=== PATIENT | female | born 1965 | race Caucasian/White ===

== ENCOUNTER 2016-10-04 20:47 | Observation (INO) | payer OTHER ==
[2016-10-04] MEDS ORDERED: Sodium Chloride 0.9% 10 ML Syringe FLUSH PRN (21:06)
--- NOTE | 2016-10-04 21:10 | EDM.PDOC ---
ED HISTORY OF PRESENT ILLNESS - General Chief Complaint: Chest Pain Stated Complaint: Chest Pain Time Seen by Provider: 10/04/16 20:58 Source of Information: Reports: Patient, Family, RN, RN notes reviewed History Limitations: Reports: No limitations - History of Present Illness INITIAL COMMENTS - FREE TEXT/NARRATIVE: Patient presents to the emergency room at [facility] complaining of substernal chest pain. The patient states the chest pain began around 4:30 this afternoon after she finished walking up a flight of steps. The patient states that she felt severely short of breath after going up the steps. The patient states it took a couple minutes for her to catch her breath. The patient states the chest pain began shortly after that. The patient states she did take a couple of ibuprofen around 6:30 which did not relieve any of the chest pain. The patient also states she developed acid reflux after eating supper this evening. the patient states that her chest pain has not gone away since it began. The patient rates her pain 5/10. She currently does not feel short of breath. No focal neurological deficits. The patient does have a history of heavy cigarette smoking. The patient does not drink alcohol. The patient denies any leg swelling. The patient denies any nausea or vomiting. ED ROS GENERAL - Review of Systems Review Of Systems: See Below Constitutional: Denies: fever, chills, weakness Respiratory: Reports: Shortness of Breath. Denies: Cough, Sputum Cardiovascular: Reports: Chest pain, Dyspnea on exertion. Denies: Blood pressure problem, Edema, Palpitations GI/Abdominal: Denies: Abdominal pain, Nausea, Vomiting Skin: Reports: no symptoms Neurological: Denies: Dizziness, Headache, Numbness, Paresthesia, Tingling ED EXAM, GENERAL - Physical Exam Exam: See Below Exam Limited By: No limitations General Appearance: alert, no apparent distress Respiratory/Chest: no respiratory distress, lungs clear, decreased breath sounds Cardiovascular: normal peripheral pulses, regular rate, rhythm, no edema Peripheral Pulses: 2+: radial (L), radial (R) GI/Abdominal: soft, non tender, abnormal bowel sounds: (hypoactive) Extremities: normal capillary refill Neurological: alert, oriented Skin Exam: Warm, Dry, Intact, Normal color, No rash EKG INTERPRETATION EKG Date: 10/04/16 Time: 20:53 Rhythm: NSR Rate (beats/min): 97 [place]: normal P-wave: present QRS: normal ST-T: normal QT: normal TX/PQ Interval: 0.15 Comparison: NA - no prior EKG EKG Interpretation Comments: 1. Sinus Rhythm 2. Low QRS voltage in precordial leads EKG #2: Sinus Rhythm; unchanged from previous EKG Course - Orders/Labs/Meds Orders: Active Orders 24 hr Category Date Time Status Admission Status [Patient Status] [ADT] Routine ADT 10/04/16 22:20 Ordered EKG 12 Lead [EKG Documentation Completion] [RC] STAT Care 10/04/16 21:07 Active EKG 12 Lead [EKG Documentation Completion] [RC] STAT Care 10/04/16 21:35 Active Chest 2V [CR] Stat Exams 10/04/16 21:05 Taken Sodium Chloride 0.9% [Normal Saline] 1,000 ml Med 10/04/16 21:15 Active IV ASDIRECTED Sodium Chloride 0.9% [Saline Flush] Med 10/04/16 21:06 Active 10 ml FLUSH ASDIRECTED PRN Peripheral IV Insertion Adult [OM.PC] Routine Oth 10/04/16 21:06 Ordered Medication Orders Sodium Chloride (Normal Saline) 1,000 mls @ 999 mls/hr IV ASDIRECTED ROSA Sodium Chloride (Saline Flush) 10 ml FLUSH ASDIRECTED PRN PRN Reason: Keep Vein Open Labs: Laboratory Tests 10/04/16 10/04/16 10/04/16 Range/Units 21:25 21:25 21:30 WBC 9.1 (4.0-10.0) x10^3/uL RBC 4.88 (4.00-5.50) x10^6/uL Hgb 14.9 (12.0-16.0) g/dL Hct 42.1 (33.0-47.0) % MCV 86.3 (78.0-93.0) fL MCH 30.5 (26.0-32.0) pg MCHC 35.4 (32.0-36.0) g/dL RDW Coeff of Adeline 13.6 (10.0-15.0) % Plt Count 246 (130-400) x10^3/uL Neut % (Auto) 72.9 (50.0-80.0) % Lymph % (Auto) 20.9 L (25.0-50.0) % [place] % (Auto) 5.3 (2.0-11.0) % Eos % (Auto) 0.6 (0.0-4.0) % Baso % (Auto) 0.3 (0.2-1.2) % Sodium 140 (136-145) mmol/L Potassium 3.5 (3.5-5.1) mmol/L Chloride 104 (98-107) mmol/L Carbon Dioxide 28 (21-32) mmol/L BUN 11 (7-18) mg/dL Creatinine 0.8 (0.55-1.02) mg/dL Est Cr Clr Drug Dosing TNP Estimated GFR (MDRD) > 60 Glucose 129 H (74-106) mg/dL Calcium 8.8 (8.5-10.1) mg/dL Corrected Calcium 9.28 (8.5-10.1) mg/dL Phosphorus 2.8 (2.6-4.7) mg/dL Magnesium 2.0 (1.8-2.4) mg/dL Total Bilirubin 0.3 (0.2-1.0) mg/dL AST 20 (15-37) U/L ALT 39 (14-59) U/L Alkaline Phosphatase 123 H (46-116) U/L Creatine Kinase 55 (26-192) U/L Creatine Kinase Index 1.1 (0.0-4.0) % CK-MB (CK-2) 0.6 (0.0-3.6) ng/mL POC Troponin I 0.00 (0.00-0.08) ng/mL Total Protein 7.1 (6.4-8.2) g/dL Albumin 3.4 (3.4-5.0) g/dL Globulin 3.7 Albumin/Globulin Ratio 0.92 Meds: Medications Generic Name Dose Route Start Last Admin Trade Name Freq PRN Reason Stop Dose Admin Sodium Chloride 1,000 mls @ 999 mls/hr 10/04/16 21:15 Normal Saline IV ASDIRECTED ROSA Sodium Chloride 10 ml 10/04/16 21:06 Saline Flush FLUSH ASDIRECTED PRN Keep Vein Open Discontinued Medications Generic Name Dose Route Start Last Admin Trade Name Freq PRN Reason Stop Dose Admin Famotidine 20 mg 10/04/16 21:29 Pepcid IVPUSH 10/04/16 21:30 ONETIME ONE Pantoprazole Sodium 40 mg 10/04/16 21:30 Protonix Iv IVPUSH 10/04/16 21:31 ONETIME ONE - Radiology Interpretation Free Text/Narrative:: CXR: Lungs are clear; The cardiomediastinal contour is mildly prominent; the regional bones and soft tissue are unremarkable - see scanned report Departure - Departure Time of Disposition: 22:22 Disposition: Refer to Observation Condition: good Clinical Impression: Chest pain Qualifiers: Chest pain type: unspecified Qualified Code(s): R07.9 - Chest pain, unspecified ED Communication - ED Communication Date/Time Date: 10/04/16 Time Called: 22:08 - Discussed Case With (1) Discussed Case With (1): Outpatient Provider, Pt's POA/Guardian Person/s Notified (1): Maria Del Carmen Moy (Recommend OBS for serial Trops) - Conversation Summary Patient Aware of Amendments fo Care Plan: Yes - Problem List Review Problem List Initiated/Reviewed/Updated: Yes - My Orders Last 24 Hours: My Active Orders 10/04/16 21:05 Chest 2V [CR] Stat 10/04/16 21:06 Sodium Chloride 0.9% [Saline Flush] 10 ml FLUSH ASDIRECTED PRN Peripheral IV Insertion Adult [OM.PC] Routine 10/04/16 21:07 EKG 12 Lead [EKG Documentation Completion] [RC] STAT 10/04/16 21:15 Sodium Chloride 0.9% [Normal Saline] 1,000 ml IV ASDIRECTED 10/04/16 21:35 EKG 12 Lead [EKG Documentation Completion] [RC] STAT 10/04/16 22:20 Admission Status [Patient Status] [ADT] Routine - Assessment/Plan Admission H&P: Please use this note as an admission H&P Last 24 Hours: My Active Orders 10/04/16 21:05 Chest 2V [CR] Stat 10/04/16 21:06 Sodium Chloride 0.9% [Saline Flush] 10 ml FLUSH ASDIRECTED PRN Peripheral IV Insertion Adult [OM.PC] Routine 10/04/16 21:07 EKG 12 Lead [EKG Documentation Completion] [RC] STAT 10/04/16 21:15 Sodium Chloride 0.9% [Normal Saline] 1,000 ml IV ASDIRECTED 10/04/16 21:35 EKG 12 Lead [EKG Documentation Completion] [RC] STAT 10/04/16 22:20 Admission Status [Patient Status] [ADT] Routine Assessment:: Chest Pain Plan: Patient will be admitted to OBS for serial EKG's and Troponins
[2016-10-04] MEDS ORDERED: Sodium Chloride 0.9% 1,000 ML IV SCH (21:15)
[2016-10-04] MEDS ORDERED: Famotidine 20 MG/2 ML SDV IVPUSH ONE (21:29)
[2016-10-04] MEDS ORDERED: Pantoprazole 40 MG Vial IVPUSH ONE (21:30)
[2016-10-04 22:02] LABS: CHLORIDE,CL 104 mmol/L (98-107); SODIUM,NA 140 mmol/L (136-145)
[2016-10-04] MEDS ORDERED: Nitroglycerin 0.4 MG Tab.SL SL ONE (22:31)
[2016-10-04] MEDS ORDERED: Aspirin 81 MG Tab.Chew PO ONE (22:31)
[2016-10-04] MEDS ORDERED: LORazepam 2 MG/ML MDV IV PRN (22:43)
[2016-10-04] MEDS ORDERED: Nitroglycerin 0.4 MG Tab.SL SL PRN (22:43)
[2016-10-04] MEDS ORDERED: Ondansetron 4 MG Tab.DIS PO PRN (22:43)
[2016-10-04] MEDS ORDERED: Morphine 4 MG/ML Syringe IVPUSH PRN (22:43)
[2016-10-04] MEDS ORDERED: Lactated Ringers 1,000 ML IV SCH (22:45)
[2016-10-04] MEDS ORDERED: Acetaminophen 325 MG Tab PO PRN (22:47)
[2016-10-04] MEDS ORDERED: Nicotine 21 MG/24 Hr Patch TRDERM SCH (23:00)
--- NOTE | 2016-10-04 23:09 | PCM.HP ---
H&P History of Present Illness - General Date of Service: 10/04/16 Admit Problem/Dx: Admission Diagnosis/Problem Admission Diagnosis/Problem Chest pain Source of Information: Patient, Family, RN, RN notes reviewed History Limitations: Reports: No limitations - History of Present Illness Initial Comments - Free Text/Narative: 50-year-old white female with a past medical history of hypertension, morbid obesity, insomnia, anxiety and depression, presented to the emergency room at [facility] earlier this evening complaining of substernal chest pain. The patient states that the chest pain began around 5 PM shortly after walking up a flight of stairs. Patient states she had significant SOB after going up the steps and the chest pain started shortly after. Around 6:30 PM, the patient states she took a couple of Advil to help with the chest pain. Patient states the Advil did not help. Patient also developed acid reflux after the Advil. The patient presented to the emergency room around 8:30 this evening. The patient was given aspirin and nitroglycerin in the emergency room. The nitroglycerin significantly helped with the chest pain. The patient's EKGs in the emergency room were unremarkable. Troponin was also negative. The patient did develop a headache from the nitroglycerin. The headache has now subsided. Patient also was given 1 L of normal saline. The patient's chest x-ray in the emergency room was negative for any acute cardiopulmonary process. Onset of Symptoms: Reports: today Symptom Onset Date: 10/04/16 Symptom Onset Time: 17:00 Duration of Symptoms: Reports: Waxing/waning Location: Reports: chest Quality: Reports: Pressure Severity: moderate Improves with: Reports: None Worsens with: Reports: Breathing, Movement Context: Reports: exertion. Denies: sick contact, activity/exercise, lifting Associated Symptoms: Reports: chest pain, shortness of breath Middle Chest Pain Score (Numeric/FACES): 5 left chest Pain Score (Numeric/FACES): 5 - Related Data Allergies/Adverse Reactions: Allergies Allergy/AdvReac Type Severity Reaction Status Date / Time vancomycin Allergy Itching Verified 10/04/16 22:26 Home Medications: Home Meds Hydrochlorothiazide 25 mg PO DAILY 10/04/16 [History] Past Medical History Cardiovascular History: Reports: Hypertension, Other (see below) (Mild Cardiomegaly) Musculoskeletal History: Reports: Back pain, chronic Neurological History: Reports: Migraines Psychiatric History: Reports: Anxiety, Depression Endocrine/Metabolic History: Reports: Obesity/BMI 30+ - Past Surgical History HEENT Surgical History: Reports: Adenoidectomy, Tonsillectomy GI Surgical History: Reports: Appendectomy, Cholecystectomy Female Surgical History: Reports: section Other Female Surgeries/Procedures: Endometrial Ablation Other Musculoskeletal Surgeries/Procedures:: Back Surgery Social & Family History - Family History Family Medical History: Noncontributory - Tobacco Use Smoking Status *Q: Current Every Day Smoker Tobacco Use Within Last Twelve Months: Cigarettes Years of Tobacco use: 34 Smoking Cessation Information Provided To Patient: Patient Refused - Tobacco Core Measures Tobacco Use/Smoking Within Last 30 Days: Refused Screening Smoking Frequency Within Last 30 Days: Reports: Five or more cigarettes per day - Caffeine Use Caffeine Use: Reports: Soda - Alcohol Use Alcohol Use History: No Alcohol Use in Last Twelve Months: No - Recreational Drug Use Recreational Drug Use: No Drug Use in Last 12 Months: No - Sexual History Sexual History: Reports: Single partner - Living Situation & Occupation Living situation: Reports: Occupation: employed H&P Review of Systems - Review of Systems: Review Of Systems: See Below General: Denies: fever, chills, weakness Pulmonary: Reports: Shortness of Breath. Denies: Cough Cardiovascular: Reports: chest pain, dyspnea on exertion. Denies: palpitations Gastrointestinal: Denies: Abdominal pain, Nausea, Vomiting Skin: Reports: no symptoms Neurological: Denies: Dizziness, Headache, Numbness, Paresthesia, Tingling Exam - Exam Exam: See Below - Vital Signs Vital Signs: Last Vital Signs Temp Pulse Resp BP 116/69 10/04/16 21:28 Pulse Ox - Exam General: alert, oriented Lungs: Normal respiratory effort, Decreased breath sounds Cardiovascular: regular rate, regular rhythm, normal S1, normal S2 Abdomen: normal bowel sounds, soft. No: organomegaly Extremities: normal inspection, normal pulses Peripheral Pulses: 2+: radial (L), radial (R) Skin: warm, dry, intact Neuro Extensive - Mental Status: alert, oriented x3 - Patient Data Result Diagrams: 10/04/16 21:25 10/04/16 21:25 *Q Meaningful Use (ADM) - VTE *Q VTE Criteria *Q: - Stroke *Q Stroke Criteria *Q: - AMI *Q AMI Criteria *Q: - Problem List (1) Chest pain SNOMED Code(s): 72646818 ICD Code: R07.9 - CHEST PAIN, UNSPECIFIED Status: Acute Priority: High Current Visit: Yes Onset Date: ~10/04/16 Problem Details: Onset of chest pain [id number] ~[id number] Qualifiers: Chest pain type: unspecified Qualified Code(s): R07.9 - Chest pain, unspecified Problem List Initiated/Reviewed/Updated: Yes Orders Last 24hrs: Active Orders 24 hr Category Date Time Status Patient Status [ADT] Routine ADT 10/04/16 22:47 Active Ambulate [RC] ASDIRECTED Care 10/04/16 22:47 Active Cardiac Education [RC] Click To Edit Care 10/04/16 22:43 Active Cardiac Monitoring [RC] . DIRECTED Care 10/04/16 22:43 Active EKG 12 Lead [EKG Documentation Completion] [RC] ROUTINE Care 10/05/16 00:30 Active EKG 12 Lead [EKG Documentation Completion] [RC] ROUTINE Care 10/05/16 03:30 Active Height and Weight [RC] UPON Care 10/04/16 22:47 Active Intake and Output [RC] QSHIFT Care 10/04/16 22:48 Active May Shower [RC] ASDIRECTED Care 10/04/16 22:47 Active Oxygen Therapy [RC] ASDIRECTED Care 10/04/16 22:43 Active Oxygen Therapy [RC] PRN Care 10/04/16 22:47 Active Smoking Cessation Education [RC] DAILY Care 10/04/16 22:52 Active VTE/DVT Education [RC] PER UNIT ROUTINE Care 10/04/16 22:47 Active Vital Signs [RC] Q4H Care 10/04/16 22:47 Active 2 Gram Sodium Diet [DIET] Diet 10/04/16 Breakfast Active TROPONIN I [CHEM] Routine Lab 10/05/16 00:30 Ordered TROPONIN I [CHEM] Routine Lab 10/05/16 03:30 Ordered Acetaminophen [Tylenol] Med 10/04/16 22:47 Active 650 mg PO Q4H PRN Aspirin [Halfprin] Med 10/05/16 08:00 Active 81 mg PO DAILY LORazepam [Ativan] Med 10/04/16 22:43 Active 1 mg IV Q6H PRN Lactated Ringers [Ringers, Lactated] 1,000 ml Med 10/04/16 22:45 Active IV ASDIRECTED Morphine Med 10/04/16 22:43 Active 4 mg IVPUSH Q10M PRN Nicotine [Habitrol] Med 10/04/16 23:00 Active 21 mg TRDERM DAILY Nitroglycerin [Nitrostat] Med 10/04/16 22:43 Active 0.4 mg SL Q5M PRN Ondansetron [Zofran ODT] Med 10/04/16 22:43 Active 4 mg PO Q6H PRN Resuscitation Status Routine Resus Stat 10/04/16 22:47 Ordered Medication Orders Acetaminophen (Tylenol) 650 mg PO Q4H PRN PRN Reason: Pain (Mild 1-3)/fever Aspirin (Halfprin) 81 mg PO DAILY ROSA Sodium Chloride (Normal Saline) 1,000 mls @ 999 mls/hr IV ASDIRECTED ROSA Last Admin: 10/04/16 21:25 Dose: 999 mls/hr Lactated Ringer's (Ringers, Lactated) 1,000 mls @ 125 mls/hr IV ASDIRECTED [facility] Lorazepam (Ativan) 1 mg IV Q6H PRN PRN Reason: Anxiety Morphine Sulfate (Morphine) 4 mg IVPUSH Q10M PRN PRN Reason: Chest Pain Stop: 10/05/16 22:45 Nicotine (Habitrol) 21 mg TRDERM DAILY ROSA Nitroglycerin (Nitrostat) 0.4 mg SL Q5M PRN PRN Reason: Chest Pain Stop: 10/05/16 22:45 Ondansetron HCl (Zofran Odt) 4 mg PO Q6H PRN PRN Reason: Nausea/Vomiting Sodium Chloride (Saline Flush) 10 ml FLUSH ASDIRECTED PRN PRN Reason: Keep Vein Open Assessment/Plan Comment:: 50-year-old white female with a past medical history of hypertension, morbid obesity, insomnia, anxiety and depression, admitted to [facility] observation unit for chest pain. The patient will be hydrated with lactated Ringer's. The patient will have serial troponins and EKGs every 3 hours. Chest pain protocol orders will be initiated. Patient will be on telemetry. The patient will be on a heart healthy diet. We will order cardiac and smoking cessation education. If the EKG and troponins remain negative, the patient will be discharged home and will follow with her primary in one week. This case was discussed with Dr. Maria Del Carmen Moy, infant toddler lead teacher [facility]. Dr. Moy recommended admitting to observation since the patient responded to the nitroglycerin, and watch serial troponins and EKG.
[2016-10-05 02:31] VITALS: BP 137/61
--- NOTE | 2016-10-05 04:27 | PCM.DCSUM1 ---
Discharge Summary - Hospital Course HPI Initial Comments: 50-year-old white female with a past medical history of hypertension, morbid obesity, insomnia, anxiety and depression, presented to the emergency room at [facility] earlier this evening complaining of substernal chest pain. The patient states that the chest pain began around 5 PM shortly after walking up a flight of stairs. Patient states she had significant SOB after going up the steps and the chest pain started shortly after. Around 6:30 PM, the patient states she took a couple of Advil to help with the chest pain. Patient states the Advil did not help. Patient also developed acid reflux after the Advil. The patient presented to the emergency room around 8:30 this evening. The patient was given aspirin and nitroglycerin in the emergency room. The nitroglycerin significantly helped with the chest pain. The patient's EKGs in the emergency room were unremarkable. Troponin was also negative. The patient did develop a headache from the nitroglycerin. The headache has now subsided. Patient also was given 1 L of normal saline. The patient's chest x-ray in the emergency room was negative for any acute cardiopulmonary process. - Discharge Data Discharge Date: 10/05/16 Discharge Disposition: Home, Self-Care 01 Condition: Good - Discharge Diagnosis/Problem(s) (1) Chest pain SNOMED Code(s): 22930964 ICD Code: R07.9 - CHEST PAIN, UNSPECIFIED Status: Acute Priority: High Current Visit: Yes Onset Date: ~10/04/16 Problem Details: Onset of chest pain [id number] ~[id number] Qualifiers: Chest pain type: unspecified Qualified Code(s): R07.9 - Chest pain, unspecified - Patient Summary/Data Operative Procedure(s) Performed: None Consults: Dr. Maria Del Carmen Moy, Cardiology Labs Pending at D/C: None Hospital Course: Patient admitted to [facility] for chest pain and monitoring of serial Troponins and EKG. Patient remained chest pain free during her stay. No changes in EKG's. Patient remained hemodynamically stable. - Patient Instructions Diet: Heart Healthy Diet Activity: As Tolerated Driving: May Drive Today Showering/Bathing: May Shower Notify Provider of: Fever, Increased Pain - Discharge Plan Home Medications: Home Meds Hydrochlorothiazide 25 mg PO DAILY 10/04/16 [History] Aspirin [Halfprin] 81 mg PO DAILY tab.ec 10/05/16 [Rx] Patient Handouts: Nonspecific Chest Pain Referrals: Delores Siddiqui PA-C [Primary Care Provider] - - Discharge Summary/Plan Comment DC Time >30 min.: No Discharge Summary/Plan Comment: Patient will be discharge to home. No changes with current prescription medications. Recommend a follow up appointment with her PCP in one week. Start ASA 81 mg PO daily - General Info Date of Service: 10/05/16 Admission Dx/Problem (Free Text: Admission Diagnosis/Problem Admission Diagnosis/Problem Chest pain Functional Status: Reports: pain controlled, tolerating diet, ambulating Numeric/FACES Score: 0 - Review of Systems General: Denies: Fever, Weakness, Fatigue Pulmonary: Denies: shortness of breath, cough Cardiovascular: Denies: Chest Pain, Palpitations, Dyspnea on Exertion Gastrointestinal: Denies: Abdominal pain, Nausea, Vomiting Skin: Reports: no symptoms Neurological: Denies: Dizziness, Headache, Numbness, Paresthesia, Tingling - Patient Data Vitals - Most Recent: Last Vital Signs Temp 36.5 C 10/05/16 02:00 Pulse 77 10/05/16 02:00 Resp 20 10/05/16 02:00 BP 137/61 10/05/16 02:00 Pulse Ox 92 L 10/05/16 02:00 Weight - Most Recent: 135.284 kg I&O - Last 24 hours: Intake & Output 10/04/16 10/04/16 10/05/16 14:59 22:59 06:59 Intake Total 1240 Balance 1240 Lab Results - Last 24 hrs: Laboratory Results - last 24 hr 10/05/16 10/05/16 Range/Units 00:35 03:30 Troponin I < 0.017 < 0.017 (<=0.056) ng/mL Med Orders - Current: Current Medications Acetaminophen (Tylenol) 650 mg PO Q4H PRN PRN Reason: Pain (Mild 1-3)/fever Last Admin: 10/05/16 04:03 Dose: 650 mg Aspirin (Halfprin) 81 mg PO DAILY ROSA Hydrochlorothiazide (Hydrochlorothiazide) 25 mg PO DAILY ROSA Sodium Chloride (Normal Saline) 1,000 mls @ 999 mls/hr IV ASDIRECTED ROSA Last Admin: 10/04/16 21:25 Dose: 999 mls/hr Lactated Ringer's (Ringers, Lactated) 1,000 mls @ 125 mls/hr IV ASDIRECTED [facility] Last Admin: 10/04/16 23:30 Dose: 125 mls/hr Lorazepam (Ativan) 1 mg IV Q6H PRN PRN Reason: Anxiety Morphine Sulfate (Morphine) 4 mg IVPUSH Q10M PRN PRN Reason: Chest Pain Stop: 10/05/16 22:45 Nicotine (Habitrol) 21 mg TRDERM DAILY [facility] Last Admin: 10/04/16 23:41 Dose: 21 mg Nitroglycerin (Nitrostat) 0.4 mg SL Q5M PRN PRN Reason: Chest Pain Stop: 10/05/16 22:45 Ondansetron HCl (Zofran Odt) 4 mg PO Q6H PRN PRN Reason: Nausea/Vomiting Sodium Chloride (Saline Flush) 10 ml FLUSH ASDIRECTED PRN PRN Reason: Keep Vein Open Discontinued Medications Aspirin (Aspirin) 324 mg PO ONETIME ONE Stop: 10/04/16 22:32 Last Admin: 10/04/16 20:59 Dose: 324 mg Famotidine (Pepcid) 20 mg IVPUSH ONETIME ONE Stop: 10/04/16 21:30 Last Admin: 10/04/16 21:53 Dose: 20 mg Nitroglycerin (Nitrostat) 0.4 mg SL ONETIME ONE Stop: 10/04/16 22:32 Last Admin: 10/04/16 21:28 Dose: 0.4 mg Pantoprazole Sodium (Protonix Iv) 40 mg IVPUSH ONETIME ONE Stop: 10/04/16 21:31 Last Admin: 10/04/16 21:48 Dose: 40 mg - Exam General: Reports: alert, oriented Lungs: Reports: Clear to auscultation, Normal respiratory effort, Decreased breath sounds Cardiovascular: Reports: Regular Rate, Regular Rhythm, No Murmurs Abdomen: Reports: bowel sounds present, soft, no tenderness, no distension Skin: Reports: warm, dry, intact Neurological: Reports: no new focal deficit, normal speech *Q Meaningful Use (DIS) - VTE *Q VTE Criteria *Q: - Stroke *Q Stroke Criteria *Q: - AMI *Q AMI Criteria *Q:
[2016-10-05] MEDS ORDERED: HYDROCHLOROTHIAZIDE 25 MG PO SCH (08:00)
[2016-10-05] MEDS ORDERED: Aspirin 81 MG Tab.EC PO SCH (08:00)
== END 2016-10-05 06:30 | disposition home or self-care (01) ==
LOC: VM.ED 20:47 → VM.MS 22:20
PROVIDERS: ADMIT Nurse Practitioner Family; ATTEND Nurse Practitioner Family
DX: R07.9 Chest pain, unspecified (principal); I10 Essential (primary) hypertension; F41.9 Anxiety disorder, unspecified; F32.9 Major depressive disorder, single episode, unspecified; E66.9 Obesity, unspecified; Z68.30 Body mass index [BMI] 30.0-30.9, adult; Z90.49 Acquired absence of other specified parts of digestive tract; Z88.1 Allergy status to other antibiotic agents; Z79.82 Long term (current) use of aspirin; Z98.890 Other specified postprocedural states; F17.210 Nicotine dependence, cigarettes, uncomplicated; Z79.899 Other long term (current) drug therapy; Z91.040 Latex allergy status; Z91.018 Allergy to other foods
CPT/HCPCS: 36415; 71020; 80053; 82550; 82553; 83735; 84100; 84484; 85025; 93005; 96361; 96374; 96375; 99285; A9270; C9113; J7030; J7120; G0378; S0028

== ENCOUNTER 2019-06-25 21:18 | Emergency (ER) | payer OTHER ==
--- NOTE | 2019-06-25 21:43 | EDM.PDOC ---
ED HPI GENERAL MEDICAL PROBLEM - General Stated Complaint: RASH ON FACE Time Seen by Provider: 06/25/19 21:33 Source of Information: Reports: Patient - History of Present Illness INITIAL COMMENTS - FREE TEXT/NARRATIVE: Laura is a 53 y/o female who comes to the ER with complaints of a rash on her face and chest along with itching on her arms. Tonigt her sx got worse and she could no longer take it. She has been having these issues for about a month now and tryingto work with her PCP through med changes. She was last on a course of Prednisone in early May. She quit taking all of her meds on Sat including her Singulair and her BP meds because she thought that was the cause and it would improve her rash, but t has not. - Related Data Allergies Allergy/AdvReac Type Severity Reaction Status Date / Time ampicillin Allergy Hives Verified 06/25/19 22:25 banana Allergy Bronchospas Verified 06/25/19 22:25 ms latex Allergy Other Verified 06/25/19 22:25 vancomycin Allergy Itching Verified 06/25/19 22:25 Home Meds: Home Meds Hydrochlorothiazide 25 mg PO DAILY 10/04/16 [History] Aspirin [Halfprin] 81 mg PO DAILY tab.ec 10/05/16 [Rx] methylPREDNISolone [Medrol] 4 mg PO ASDIRECTED #21 dospk 06/25/19 [Rx] Past Medical History HEENT History: Reports: Sinusitis Cardiovascular History: Reports: Hypertension, Other (See Below) Respiratory History: Reports: SOB Musculoskeletal History: Reports: Back Pain, Chronic Neurological History: Reports: Migraines Other Neuro History: Insomnia Psychiatric History: Reports: Anxiety, Depression Endocrine/Metabolic History: Reports: Obesity/BMI 30+ - Past Surgical History Female Surgical History: Reports: Section Social & Family History - Family History Family Medical History: Noncontributory - Caffeine Use Caffeine Use: Reports: Soda - Sexual History Sexual History: Reports: Single Partner - Living Situation & Occupation Living situation: Reports: Occupation: Employed Review of Systems - Review of Systems Review Of Systems: See Below Constitutional: Reports: No Symptoms Eyes: Reports: No Symptoms Ears: Reports: No Symptoms Nose: Reports: No Symptoms Mouth/Throat: Reports: No Symptoms Respiratory: Reports: No Symptoms Cardiovascular: Reports: No Symptoms GI/Abdominal: Reports: No Symptoms Genitourinary: Reports: No Symptoms Musculoskeletal: Reports: No Symptoms Skin: Reports: Pruritis, Rash Neurological: Reports: No Symptoms Psychiatric: Reports: No Symptoms ED EXAM, GENERAL - Physical Exam Exam: See Below General Appearance: Alert, WD/WN, No Apparent Distress, Anxious (adult female, a bit tearful when talking about her sx) Ears: Normal External Exam, Normal Canal, Hearing Grossly Normal, Normal TMs Nose: Normal Inspection Throat/Mouth: Normal Teeth, Normal Voice, No Airway Compromise Head: Atraumatic, Normocephalic Neck: Normal Inspection, Supple Cardiovascular: Normal Peripheral Pulses, Regular Rate, Rhythm, No Murmur GI/Abdominal: Normal Bowel Sounds, Soft (Female) Exam: Deferred Rectal (Female) Exam: Deferred Back Exam: Normal Inspection Extremities: Normal Inspection, Normal Range of Motion, Normal Capillary Refill Neurological: Alert, Oriented, CN II-XII Intact, Normal Cognition, No Motor/ Sensory Deficits Psychiatric: Anxious, Tearful Skin Exam: Warm, Dry, Intact, Normal Color, Rash (note erythematous raised rash to face and chest region, arms appear to have been itched, but no rash apparent) Course - Vital Signs Text/Narrative:: 2132 The patient was seen by the WEIGHER [facility]OY. She was given SoluMedrol 125mg IM and Benadryl 50mg po. 2224 BP 145/65 Patient feeling better nowm rash starting to feel this "hot". Will send patient with Medrol Dose Pack and antihistamines. Will have her stay off of her medications for now and discuss a restarting process with her PCP in Monday at her appt. She was given discharge instructions and left the ER in stable condition. - Orders/Labs/Meds Meds: Medications Discontinued Medications Generic Name Dose Route Start Last Admin Trade Name Freq PRN Reason Stop Dose Admin Diphenhydramine HCl 50 mg 06/25/19 21:47 06/25/19 21:51 Benadryl PO 06/25/19 21:48 50 mg NOW STA Administration Methylprednisolone Sodium Succinate 125 mg 06/25/19 21:48 06/25/19 21:51 Solu-Medrol IM 06/25/19 21:49 125 mg ONETIME ONE Administration Departure - Departure Time of Disposition: 22:26 Disposition: Home, Self-Care 01 Condition: Good Clinical Impression: Allergic reaction - Discharge Information *PRESCRIPTION DRUG MONITORING PROGRAM REVIEWED*: Not Applicable *COPY OF PRESCRIPTION DRUG MONITORING REPORT IN PATIENT CARLY: Not Applicable Prescriptions: methylPREDNISolone [Medrol] 4 mg PO ASDIRECTED #21 dospk Instructions: Allergies, Adult Referrals: Delores Siddiqui PA-C [Primary Care Provider] - Additional Instructions: -Medrol Dose Pack 4 mg oral as directed #31(Rx) Pick this up tomorrow. -Diphenhydramine 50 mg oral every 6 hours for the next 48 hours then as needed. (Use over the counter meds.) -Return to the ER if symptoms return or any other concerns -Keep your PCP appt for Monday to discuss chronic medications Sepsis Event Note - Focused Exam Date Exam was Performed: 06/25/19 Time Exam was Performed: 22:23
[2019-06-25] MEDS: diphenhydrAMINE 25 MG Cap PO STA (21:51)
[2019-06-25] MEDS: methylPREDNISolone Sodium Succinate 125 MG/2 ML SDV IM ONE (21:51)
[2019-06-25] MEDS: predniSONE 20 MG Tab PO STA (22:29)
[2019-06-25 23:18] VITALS: PULSE 97
[2019-06-25 23:27] VITALS: BP 145/65
== END 2019-06-25 22:39 | disposition home or self-care (01) ==
LOC: VM.ED 21:18
DX: T78.40XA Allergy, unspecified, initial encounter (principal); I10 Essential (primary) hypertension; Z88.1 Allergy status to other antibiotic agents; Z91.040 Latex allergy status; Z91.018 Allergy to other foods; Z79.82 Long term (current) use of aspirin
CPT/HCPCS: 96372; 99282; A9270-GY; J2930

== ENCOUNTER 2020-05-03 20:22 | Emergency (ER) | payer OTHER ==
[2020-05-03] MEDS ORDERED: Sodium Chloride 0.9% 10 ML Syringe FLUSH PRN (20:28)
[2020-05-03] MEDS ORDERED: Sodium Chloride 0.9% 1,000 ML IV ONE (20:48)
--- NOTE | 2020-05-03 21:01 | EDM.PDOC ---
ED HPI GENERAL MEDICAL PROBLEM - General Stated Complaint: COVID+;SOB Time Seen by Provider: 05/03/20 20:27 Source of Information: Reports: Patient - History of Present Illness INITIAL COMMENTS - FREE TEXT/NARRATIVE: Laura is a 54 y/o female who comes to the ER with SOB. She has been COVID+ since 04/26/2020, but her sx started mildly on 04/25/2020. She works at a [employer] and was rapid tested on 04/26/2020. She has had boady aches and headache. Some diarrhea, able to drink some fluids with a decreased appetite. She is a 1 PPD smoker and has continued to smoke until this AM when she woke up very SOB. She has only smoked 3 cigs today. She is coughing and then does gag up some mucous, but she gets very SOB wit this. She has a Combivent inhaler at home that she uses for intermittent asthma sx, but today she used it up to 10 times, in fact she was having a hard time walking due to her SOB and was quite SOB with talking. She took 6 puffs right before coming inside the ER and she reports actually feeling a bit better for the first time today. In addition to the Combivent she is takig ibuprofen, Vitamin D, Vitamin C, and zinc. - Related Data Allergies Allergy/AdvReac Type Severity Reaction Status Date / Time ampicillin Allergy Hives Verified 06/25/19 22:25 banana Allergy Bronchospas Verified 06/25/19 22:25 ms latex Allergy Other Verified 06/25/19 22:25 vancomycin Allergy Itching Verified 06/25/19 22:25 Home Meds: Home Meds Hydrochlorothiazide 25 mg PO DAILY 10/04/16 [History] Aspirin [Halfprin] 81 mg PO DAILY tab.ec 10/05/16 [Rx] methylPREDNISolone [Medrol] 4 mg PO ASDIRECTED #21 dospk 06/25/19 [Rx] Albuterol [Ventolin HFA] 2 puff INH Q3H #30 puff 05/03/20 [Rx] Past Medical History HEENT History: Reports: Sinusitis Cardiovascular History: Reports: Hypertension, Other (See Below) Respiratory History: Reports: SOB Musculoskeletal History: Reports: Back Pain, Chronic Neurological History: Reports: Migraines Other Neuro History: Insomnia Psychiatric History: Reports: Anxiety, Depression Endocrine/Metabolic History: Reports: Obesity/BMI 30+ - Past Surgical History Female Surgical History: Reports: Section Social & Family History - Family History Family Medical History: No Pertinent Family History - Caffeine Use Caffeine Use: Reports: Soda - Sexual History Sexual History: Reports: Single Partner - Living Situation & Occupation Living situation: Reports: Occupation: Employed Review of Systems - Review of Systems Review Of Systems: See Below Constitutional: Reports: Fever, Weakness Eyes: Reports: No Symptoms Ears: Reports: No Symptoms Nose: Reports: Congestion Mouth/Throat: Reports: Pain Respiratory: Reports: Shortness of Breath, Cough, Sputum Cardiovascular: Reports: No Symptoms GI/Abdominal: Reports: Decreased Appetite, Diarrhea, Nausea Genitourinary: Reports: No Symptoms Musculoskeletal: Reports: Other (Body Aches) Skin: Reports: No Symptoms Neurological: Reports: Headache Psychiatric: Reports: No Symptoms ED EXAM, GENERAL - Physical Exam Exam: See Below General Appearance: Alert, WD/WN, No Apparent Distress (Obese, adult female.) Eye Exam: Bilateral Eye: PERRL Ears: Normal External Exam, Normal Canal, Hearing Grossly Normal, Normal TMs Nose: Normal Inspection, Normal Mucosa Throat/Mouth: Normal Inspection, Normal Lips, Normal Teeth, Normal Voice, No Airway Compromise Head: Atraumatic, Normocephalic Neck: Supple Respiratory/Chest: Decreased Breath Sounds (No wheezing, scattered coarseness in bases) Cardiovascular: Regular Rate, Rhythm, No Edema GI/Abdominal: Normal Bowel Sounds, Soft (Female) Exam: Deferred Rectal (Female) Exam: Deferred Back Exam: Other (Not examined) Extremities: Normal Inspection, Normal Capillary Refill Neurological: Alert, Oriented, CN II-XII Intact, Normal Cognition Psychiatric: Normal Affect Skin Exam: Warm, Dry, Intact, Normal Color Lymphatic: No Adenopathy Course - Vital Signs Text/Narrative:: 2026 The patient was seen by the [facility] [employer]. Labs, CXR, and EKG ordered. Vital were stable and her oxygen sat 95% on room air. She was given a liter of NS since she has not been drinking much for fluids. 220 Labs reviewed.CBC negative. AST=50, ALT=62. D Dimer=0.55. Discussed with patient. She is feeling better after IV fluids and is breathing easier since arrival here. EKG negative. Will prescribe her an Albuterol MDI which she can use more often that her Combivent if needed during the course of her COVID illness. Considered a course of steroids since she is asthmatic, but since sheis not wheezing and she has improved we will hold off for now. Advised to watch for worsening of sx ad advised to return as needed. She was able to void after IV fluids. UA results reviewed. Discharge instructions were given and the patient left the ER in stable condition. - Orders/Labs/Meds Orders: Active Orders 24 hr Category Date Time Status EKG Documentation Completion [RC] STAT Care 05/03/20 20:28 Active Chest 1V Frontal [CR] Stat Exams 05/03/20 20:28 Taken Sodium Chloride 0.9% [Saline Flush] Med 05/03/20 20:28 Active 10 ml FLUSH ASDIRECTED PRN Saline Lock Insert [OM.PC] Stat Oth 05/03/20 20:28 Ordered Medication Orders Sodium Chloride (Saline Flush) 10 ml FLUSH ASDIRECTED PRN PRN Reason: Keep Vein Open Labs: Laboratory Tests 05/03/20 05/03/20 05/03/20 Range/Units 21:04 21:04 21:04 WBC 5.1 (4.0-10.0) x10^3/uL RBC 5.19 (4.00-5.50) x10^6/uL Hgb 15.7 (12.0-16.0) g/dL Hct 46.1 (33.0-47.0) % MCV 88.8 (78.0-93.0) fL MCH 30.3 (26.0-32.0) pg MCHC 34.1 (32.0-36.0) g/dL RDW Coeff of Adeline 14.0 (10.0-15.0) % Plt Count 142 D (130-400) x10^3/uL Neut % (Auto) 75.1 (50.0-80.0) % Lymph % (Auto) 17.0 L (25.0-50.0) % [place] % (Auto) 7.3 (2.0-11.0) % Eos % (Auto) 0.4 (0.0-4.0) % Baso % (Auto) 0.2 (0.2-1.2) % PT 9.7 (9.5-12.3) SEC INR 0.9 L (2.0-3.5) APTT 35.0 H (25.6-32.8) SEC D-Dimer, Quantitative 0.55 (<=0.58) mg/LFEU Sodium 139 (136-145) mmol/L Potassium 4.5 (3.5-5.1) mmol/L Chloride 106 (98-107) mmol/L Carbon Dioxide 28 (21-32) mmol/L Anion Gap 9.5 L (10-20) mmol/L BUN 11 (7-18) mg/dL Creatinine 0.8 (0.55-1.02) mg/dL Est Cr Clr Drug Dosing TNP Estimated GFR (MDRD) > 60 Glucose 101 (74-106) mg/dL Calcium 8.7 (8.5-10.1) mg/dL Corrected Calcium 9.42 (8.5-10.1) mg/dL Magnesium 1.9 (1.8-2.4) mg/dL Ferritin (8-252) ng/mL Total Bilirubin 0.4 (0.2-1.0) mg/dL AST 50 H (15-37) U/L ALT 62 H (14-59) U/L Alkaline Phosphatase 122 H (46-116) U/L Troponin I < 0.017 (<=0.056) ng/mL Total Protein 7.0 (6.4-8.2) g/dL Albumin 3.1 L (3.4-5.0) g/dL Globulin 3.9 Albumin/Globulin Ratio 0.79 Urine Color (YELLOW) Urine Appearance (CLEAR) Urine pH (5.0-8.0) Ur Specific [place] Urine Protein (NEGATIVE) mg/dL Urine Glucose (UA) (NEGATIVE) mg/dL Urine Ketones (NEGATIVE) mg/dL Urine Occult Blood (NEGATIVE) Urine Nitrite (NEGATIVE) Urine Bilirubin (NEGATIVE) Urine Urobilinogen (0.2) EU/dL Ur Leukocyte Esterase (NEGATIVE) U Hyaline Cast (Auto) Urine RBC (NOT SEEN) /HPF Urine WBC (NOT SEEN) /HPF Ur Squamous Epith Cells (NEGATIVE) /HPF Urine Bacteria (NEGATIVE) /HPF Urine Mucus (NEGATIVE) /LPF 05/03/20 05/03/20 Range/Units 21:04 22:00 WBC (4.0-10.0) x10^3/uL RBC (4.00-5.50) x10^6/uL Hgb (12.0-16.0) g/dL Hct (33.0-47.0) % MCV (78.0-93.0) fL MCH (26.0-32.0) pg MCHC (32.0-36.0) g/dL RDW Coeff of Adeline (10.0-15.0) % Plt Count (130-400) x10^3/uL Neut % (Auto) (50.0-80.0) % Lymph % (Auto) (25.0-50.0) % [place] % (Auto) (2.0-11.0) % Eos % (Auto) (0.0-4.0) % Baso % (Auto) (0.2-1.2) % PT (9.5-12.3) SEC INR (2.0-3.5) APTT (25.6-32.8) SEC D-Dimer, Quantitative (<=0.58) mg/LFEU Sodium (136-145) mmol/L Potassium (3.5-5.1) mmol/L Chloride (98-107) mmol/L Carbon Dioxide (21-32) mmol/L Anion Gap (10-20) mmol/L BUN (7-18) mg/dL Creatinine (0.55-1.02) mg/dL Est Cr Clr Drug Dosing Estimated GFR (MDRD) Glucose (74-106) mg/dL Calcium (8.5-10.1) mg/dL Corrected Calcium (8.5-10.1) mg/dL Magnesium (1.8-2.4) mg/dL Ferritin 361 H (8-252) ng/mL Total Bilirubin (0.2-1.0) mg/dL AST (15-37) U/L ALT (14-59) U/L Alkaline Phosphatase (46-116) U/L Troponin I (<=0.056) ng/mL Total Protein (6.4-8.2) g/dL Albumin (3.4-5.0) g/dL Globulin Albumin/Globulin Ratio Urine Color Yellow (YELLOW) Urine Appearance Slightly cloudy H (CLEAR) Urine pH 5.5 (5.0-8.0) Ur Specific [place] >=1.030 Urine Protein Trace H (NEGATIVE) mg/dL Urine Glucose (UA) Negative (NEGATIVE) mg/dL Urine Ketones Negative (NEGATIVE) mg/dL Urine Occult Blood Trace-lysed H (NEGATIVE) Urine Nitrite Negative (NEGATIVE) Urine Bilirubin Negative (NEGATIVE) Urine Urobilinogen 0.2 (0.2) EU/dL Ur Leukocyte Esterase Negative (NEGATIVE) U Hyaline Cast (Auto) Rare Urine RBC 0-5 (NOT SEEN) /HPF Urine WBC 0-5 (NOT SEEN) /HPF Ur Squamous Epith Cells Many H (NEGATIVE) /HPF Urine Bacteria Not seen (NEGATIVE) /HPF Urine Mucus Few H (NEGATIVE) /LPF Meds: Medications Generic Name Dose Route Start Last Admin Trade Name Freq PRN Reason Stop Dose Admin Sodium Chloride 10 ml 05/03/20 20:28 Saline Flush FLUSH ASDIRECTED PRN Keep Vein Open Discontinued Medications Generic Name Dose Route Start Last Admin Trade Name Freq PRN Reason Stop Dose Admin Sodium Chloride 1,000 mls @ 999 mls/hr 05/03/20 20:48 Normal Saline IV 05/03/20 21:48 ONETIME ONE - Radiology Interpretation Free Text/Narrative:: CXR 1V=low lung volume noted, possible developing infection vs atelectasis (See final report) Departure - Departure Time of Disposition: 22:16 Disposition: Home, Self-Care 01 Condition: Good Clinical Impression: COVID-19, History of asthma, Elevated LFTs, Tobacco use - Discharge Information Prescriptions: Albuterol [Ventolin HFA] 2 puff INH Q3H #30 puff Instructions: COVID-19: How to Protect Yourself and Others - CDC, COVID-19 Frequently Asked Questions, Health Risks of Smoking Referrals: Delores Siddiqui PA-C [Primary Care Provider] - Forms: ED Return to Work/School Form Additional Instructions: -Use the Albuterol inhaler 2 pufs every 3-4 hours as needed for increased SOB/cough (ER) #18gm(Rx) -Continue to use Combivent as prescribed -Stay well hydrated -Use ibuprofen as needed for fever/pain -Your liver function tests were mildly elevated. This could be due to your viral illness or may be related to another cause. Please follow this up with your PCP when you are feeling better in the next few weeks. Avoid Acetaminophen products if possible. -Rest -Work note given. You are on Day #8 of COVID quarantine, but will need a few more days to rest until your breathing in better. -Attempt to quit smoking if possible. -Follow up your PCP for any concerns or return to the ER if your symptoms are not manageable at home. -See COVID instructions - My Orders Last 24 Hours: My Active Orders 05/03/20 20:28 EKG Documentation Completion [RC] STAT Chest 1V Frontal [CR] Stat Sodium Chloride 0.9% [Saline Flush] 10 ml FLUSH ASDIRECTED PRN Saline Lock Insert [OM.PC] Stat - Assessment/Plan Last 24 Hours: My Active Orders 05/03/20 20:28 EKG Documentation Completion [RC] STAT Chest 1V Frontal [CR] Stat Sodium Chloride 0.9% [Saline Flush] 10 ml FLUSH ASDIRECTED PRN Saline Lock Insert [OM.PC] Stat
[2020-05-03 21:36] LABS: CHLORIDE,CL 106 mmol/L (98-107); SODIUM,NA 139 mmol/L (136-145)
[2020-05-03 21:38] LABS: ANION GAP 9.5 mmol/L (10-20)
[2020-05-03] MEDS ORDERED: Take Home: Albuterol 18 GM Inhaler, 1 Inhaler Pack INH PRN (22:16)
[2020-05-04 04:00] VITALS: BP 108/47; PULSE 69
--- NOTE | 2020-05-04 08:23 | CR ---
[id number] RAD/RAD Chest PA or AP 1V EXAM: SINGLE VIEW CHEST. INDICATION: VIRAL INFECTION SHORTNESS OF BREATH COMPARISON: CORRELATION IS MADE WITH OCTOBER 04, 2016 FINDINGS: An early right perihilar infiltrate is seen The left lung is clear The cardiac silhouette is stable IMPRESSION: EARLY RIGHT PERIHILAR PNEUMONIA Miguelito Carroll MD 05/04/20 0823 Thank you for allowing us to participate in the care of your patient.
== END 2020-05-03 22:40 | disposition home or self-care (01) ==
LOC: VM.ED 20:22
DX: U07.1 COVID-19 (principal); R79.89 Other specified abnormal findings of blood chemistry; J45.909 Unspecified asthma, uncomplicated; I10 Essential (primary) hypertension; E66.9 Obesity, unspecified; Z68.42 Body mass index [BMI] 45.0-49.9, adult; Z72.0 Tobacco use; Z88.1 Allergy status to other antibiotic agents; Z91.018 Allergy to other foods; Z91.040 Latex allergy status; Z79.82 Long term (current) use of aspirin; Z79.899 Other long term (current) drug therapy
CPT/HCPCS: 71045; 80053; 81001; 82728; 83735; 84484; 85025; 85379; 85610; 85730; 93005; 99284; 99285; A9270; J7030

== ENCOUNTER 2020-07-31 21:12 | Emergency (ER) | payer OTHER ==
[2020-07-31] MEDS ORDERED: Albuterol/Ipratropium 3.0-0.5 MG/3 ML Neb Soln NEB ONE (21:30)
--- NOTE | 2020-07-31 21:42 | EDM.PDOC ---
ED HPI GENERAL MEDICAL PROBLEM - General Stated Complaint: SOB Time Seen by Provider: 07/31/20 21:15 Source of Information: Reports: Patient History Limitations: Reports: No Limitations - History of Present Illness INITIAL COMMENTS - FREE TEXT/NARRATIVE: Patient comes emergency department today from home with complaints of shortness of breath. This patient for the past 2 weeks has noticed some shortness of breath and some wheezing more than normal. Is been slowly getting worse to the point last night that it was difficult for her to lay down if she was short of breath. She noticed quite a bit of wheezing throughout the day. She has no change in her chronic cough and no change in her sputum production. No fever no chills. No chest pain tightness in her chest. No weakness dizziness lighthe adedness. No palpitations. No syncope. She does have a history of asthma for which she uses a Combivent inhaler as needed she is not on any controllers for her asthma. She did have Covid this fall and has received both vaccines. She has no fever no chills. She has some chronic sinus congestion nothing worse than normal. No abdominal pain nausea or vomiting. No hematuria dysuria or urinary frequency. She is a pack-a-day smoker for many years. He did try her MDI inhaler at home without improvement. She does have a history of anxiety and wonders if this is not an aspect of anxiety or her asthma. - Related Data Allergies Allergy/AdvReac Type Severity Reaction Status Date / Time ampicillin Allergy Hives Verified 07/31/20 21:37 banana Allergy Bronchospas Verified 07/31/20 21:37 ms latex Allergy Other Verified 07/31/20 21:37 vancomycin Allergy Itching Verified 07/31/20 21:37 Home Meds: Home Meds Aspirin [Halfprin] 81 mg PO DAILY tab.ec 10/05/16 [Rx] Albuterol [Ventolin HFA] 2 puff INH Q3H #30 puff 05/03/20 [Rx] Albuterol/Ipratropium [Combivent Respimat] 4 gm IH ASDIRECTED 05/04/20 [History] carvediloL [Coreg] 12.5 mg PO BID 05/04/20 [History] predniSONE [Prednisone] 40 mg PO DAILY 4 Days #8 tablet 07/31/20 [Rx] Past Medical History HEENT History: Reports: Sinusitis Cardiovascular History: Reports: Hypertension, Other (See Below) Respiratory History: Reports: SOB Musculoskeletal History: Reports: Back Pain, Chronic Neurological History: Reports: Migraines Other Neuro History: Insomnia Psychiatric History: Reports: Anxiety, Depression Endocrine/Metabolic History: Reports: Obesity/BMI 30+ - Past Surgical History Female Surgical History: Reports: Section Social & Family History - Family History Family Medical History: No Pertinent Family History - Caffeine Use Caffeine Use: Reports: Soda - Sexual History Sexual History: Reports: Single Partner - Living Situation & Occupation Living situation: Reports: Occupation: Employed ED ROS GENERAL - Review of Systems Review Of Systems: Comprehensive ROS is negative, except as noted in HPI. ED EXAM, GENERAL - Physical Exam Exam: See Below Exam Limited By: No Limitations General Appearance: Alert, WD/WN, No Apparent Distress Eye Exam: Bilateral Eye: EOMI, PERRL Ears: Normal External Exam, Normal TMs Nose: Normal Inspection, Normal Mucosa Throat/Mouth: Normal Inspection, Normal Lips, Normal Oropharynx, No Airway Compromise Head: Atraumatic, Normocephalic Neck: Normal Inspection, Supple, Non-Tender, Full Range of Motion Respiratory/Chest: No Respiratory Distress, No Accessory Muscle Use, Chest Non- Tender, Decreased Breath Sounds (Throughout.). No: Crackles, Rales, Rhonchi, Wheezing, Accessory Muscle Use Cardiovascular: Normal Peripheral Pulses, Regular Rate, Rhythm Peripheral Pulses: 2+: Radial (L), Radial (R), Posterior Tibial (L), Posterior Tibial (R), Dorsalis Pedis (L), Dorsalis Pedis (R) GI/Abdominal: Normal Bowel Sounds, Soft, Non-Tender (Female) Exam: Deferred Rectal (Female) Exam: Deferred Back Exam: Normal Inspection, Full Range of Motion Extremities: Normal Inspection, Normal Range of Motion, Normal Capillary Refill Neurological: Alert, Oriented, CN II-XII Intact, Normal Cognition, No Motor/Sensory Deficits Psychiatric: Normal Affect, Normal Mood Skin Exam: Warm, Dry, Intact, Normal Color, No Rash #1 Interpretation EKG Date: 07/31/20 Time: 21:18 Rhythm: NSR Rate (Beats/Min): 75 [place]: Normal P-Wave: Present QRS: Normal ST-T: Normal QT: Normal Comparison: NA - No Prior EKG Course - Vital Signs Last Recorded V/S: Last Vital Signs Temp 96.2 F L 07/31/20 21:44 Pulse 82 07/31/20 21:44 Resp 18 07/31/20 21:44 BP 172/86 H 07/31/20 21:44 Pulse Ox 96 07/31/20 21:44 - Orders/Labs/Meds Orders: Active Orders 24 hr Category Date Time Status EKG Documentation Completion [RC] STAT Care 07/31/20 21:24 Active RT Aerosol Therapy [RC] ASDIRECTED Care 07/31/20 21:31 Active Chest 2V [CR] Urgent Exams 07/31/20 21:24 Taken Labs: Laboratory Tests 07/31/20 07/31/20 Range/Units 21:51 21:51 WBC 7.7 (4.0-10.0) x10^3/uL RBC 4.76 (4.00-5.50) x10^6/uL Hgb 14.4 (12.0-16.0) g/dL Hct 42.5 (33.0-47.0) % MCV 89.3 (78.0-93.0) fL MCH 30.3 (26.0-32.0) pg MCHC 33.9 (32.0-36.0) g/dL RDW Coeff of Adeline 14.0 (10.0-15.0) % Plt Count 228 D (130-400) x10^3/uL Neut % (Auto) 64.7 (50.0-80.0) % Lymph % (Auto) 26.0 (25.0-50.0) % Dunn % (Auto) 7.4 (2.0-11.0) % Eos % (Auto) 1.6 (0.0-4.0) % Baso % (Auto) 0.3 (0.2-1.2) % Sodium 147 H (136-145) mmol/L Potassium 4.2 (3.5-5.1) mmol/L Chloride 108 H (98-107) mmol/L Carbon Dioxide 32 (21-32) mmol/L Anion Gap 11.2 (5-15) mmol/L BUN 11 (7-18) mg/dL Creatinine 0.8 (0.55-1.02) mg/dL Est Cr Clr Drug Dosing TNP Estimated GFR (MDRD) > 60 Glucose 134 H (74-106) mg/dL Calcium 9.1 (8.5-10.1) mg/dL Corrected Calcium 9.74 (8.5-10.1) mg/dL Total Bilirubin 0.3 (0.2-1.0) mg/dL AST 18 (15-37) U/L ALT 37 (14-59) U/L Alkaline Phosphatase 155 H (46-116) U/L Troponin I < 0.017 (<=0.056) ng/mL C-Reactive Protein 0.5 (<=0.9) mg/dL NT-Pro-B Natriuret Pep 105 (<=125) pg/mL Total Protein 7.0 (6.4-8.2) g/dL Albumin 3.2 L (3.4-5.0) g/dL Globulin 3.8 Albumin/Globulin Ratio 0.84 Meds: Medications Discontinued Medications Generic Name Dose Route Start Last Admin Trade Name Freq PRN Reason Stop Dose Admin Albuterol/Ipratropium 3 ml 07/31/20 21:30 07/31/20 21:42 Duoneb 3.0-0.5 Mg/3 Ml NEB 07/31/20 21:31 3 ml ONETIME ONE Administration Lorazepam 1 mg 07/31/20 22:12 07/31/20 22:24 Ativan PO 07/31/20 22:13 1 mg ONETIME ONE Administration Prednisone 40 mg 07/31/20 22:28 07/31/20 22:36 Prednisone PO 07/31/20 22:29 40 mg ONETIME ONE Administration - Radiology Interpretation Free Text/Narrative:: Chest x-ray per radiology shows hypoinflation and atelectasis versus possible infiltrates in the bases bilaterally. - Re-Assessments/Exams Free Text/Narrative Re-Assessment/Exam: 08/01/20 00:49 EKG was normal. Labs are drawn. Her labs are rather unremarkable. Her troponin is negative her lactic acid is negative her white blood cell count is negative. She received a DuoNeb nebulizer with about 50% improvement of her subjective shortness of breath. She had increased air movement bilaterally. She was also given some Ativan for anxiety. She does feel quite a bit better after the DuoNeb nebulizer. I discussed with her being an asthmatic patient that the underlying condition of asthma is an inflammatory process typically patients are on a daily controller for their asthma. I think that this is a mild exacerbation of asthma which is much improved with the nebulizer. We will give her 40 mg of prednisone for the next 5 days. Also use her Combivent inhaler which we gave her a spacer for to ensure appropriate usage of the MDI inhaler. I would like her to follow-up with primary care in a week to discuss long-term management such as inhaled corticosteroids for the management of inflammatory asthma which she is currently not on. Discharge instructions as below are explained to the patient she was comfortable with this plan and her questions were answered. Departure - Departure Time of Disposition: 22:30 Disposition: Home, Self-Care 01 Clinical Impression: Exacerbation of asthma Qualifiers: Asthma severity: mild Asthma persistence: unspecified Qualified Code(s): J45.901 - Unspecified asthma with (acute) exacerbation - Discharge Information Prescriptions: predniSONE [Prednisone] 40 mg PO DAILY 4 Days #8 tablet Instructions: Asthma, Adult, [id number] Additional Instructions: Increase fluids over the next few days. Consider stopping smoking Albuterol inhaler, 2 puffs every 4 hrs as needed for SOB or wheezing. Prednisone 40mg daily for the next 5 days. First dose given in the ED and RX sent to [facility]. Return to the ED if new or worsening symptoms. Follow up with PCP in the next week for recheck and consider senior living asthma controller medications such as inhaled Fluticasone. Sepsis Event Note (ED) - Focused Exam Vital Signs: Vital Signs Temp Pulse Resp BP Pulse Ox 07/31/20 21:44 96.2 F L 82 18 172/86 H 96 - My Orders Last 24 Hours: My Active Orders 07/31/20 21:24 EKG Documentation Completion [RC] STAT Chest 2V [CR] Urgent 07/31/20 21:31 RT Aerosol Therapy [RC] ASDIRECTED - Assessment/Plan Last 24 Hours: My Active Orders 07/31/20 21:24 EKG Documentation Completion [RC] STAT Chest 2V [CR] Urgent 07/31/20 21:31 RT Aerosol Therapy [RC] ASDIRECTED
[2020-07-31] MEDS ORDERED: LORazepam 1 MG Tab PO ONE (22:12)
[2020-07-31 22:21] LABS: ANION GAP 11.2 mmol/L (5-15); CHLORIDE,CL 108 mmol/L (98-107); SODIUM,NA 147 mmol/L (136-145)
[2020-07-31] MEDS ORDERED: predniSONE 20 MG Tab PO ONE (22:28)
[2020-07-31 22:33] VITALS: BP 172/86; PULSE 82
--- NOTE | 2020-08-01 12:32 | CR ---
[id number] RAD/RAD Chest PA And Lateral EXAM: RAD Chest PA And Lateral INDICATION: SHORTNESS OF BREATH. COMPARISON: May 03, 2020. DISCUSSION: Cardiomediastinal silhouette is normal in size and contour. Lungs are clear. No pleural effusion or pneumothorax. What is described as infiltrates on preliminary report is most likely artifact. IMPRESSION: Negative examination of the chest. Can Hayes MD 08/01/20 0623 Thank you for allowing us to participate in the care of your patient.
== END 2020-07-31 22:47 | disposition home or self-care (01) ==
LOC: VM.ED 21:12 → SUPCPDRO 21:12 → VM.ED 22:47
DX: J45.901 Unspecified asthma with (acute) exacerbation (principal); I10 Essential (primary) hypertension; E66.9 Obesity, unspecified; Z68.41 Body mass index [BMI] 40.0-44.9, adult; Z88.1 Allergy status to other antibiotic agents; Z91.013 Allergy to seafood; Z91.040 Latex allergy status; Z79.82 Long term (current) use of aspirin; Z79.899 Other long term (current) drug therapy
CPT/HCPCS: 36415; 71046; 80053; 83880; 84484; 85025; 86140; 93005; 93010; 99284; 99285-25; A9270-GY; J7512; J7620-GY

== ENCOUNTER 2021-12-24 18:05 | Emergency (ER) | payer OTHER | END 2021-12-24 18:50 | disposition left against medical advice (07) | LOC: VM.ED 18:05 | DX: Z53.21 Procedure and treatment not carried out due to patient leaving prior to being seen by health care provider (principal) ==